=== PATIENT | female | born 1995 | race Caucasian/White ===

== ENCOUNTER 2024-02-11 15:10 | Inpatient (IN) | payer BC ==
[2024-02-11] MEDS: ELECTROLYTE-148 SOLN 1,000 ML IV SCH (16:00)
[2024-02-11] MEDS: OXYTOCIN 30 UNITS in 0.9% NS 30 UNIT/500 ML INFUS.BAG IVPB SCH (16:20)
[2024-02-11 16:32] VITALS: BMI 30.5
[2024-02-11] MEDS ORDERED: OXYTOCIN 30 UNITS in 0.9% NS 30 UNIT/500 ML INFUS.BAG IVPB ONE (16:33)
[2024-02-11] MEDS ORDERED: AMPICILLIN SODIUM 2 GM VIAL ONE (17:49)
[2024-02-11] MEDS: AMPICILLIN SODIUM 2 GM VIAL IVPB ONE (17:55)
[2024-02-11] MEDS ORDERED: FENTANYL/BUPIVACAINE/NS/PF - PCEA - 50 ML DISP.SYRIN EP ONE (20:41)
[2024-02-11] MEDS ORDERED: FENTANYL CITRATE/PF 50 MCG/ML VIAL ONE (21:04)
[2024-02-11] MEDS ORDERED: BUPIVACAINE HCL/PF 0.25% (2.5MG/ML) 10 ML VIAL ONE (21:04)
[2024-02-11] MEDS: FENTANYL/BUPIVACAINE/NS/PF - PCEA - 50 ML DISP.SYRIN EP SCH (21:15)
[2024-02-11] MEDS ORDERED: AMPICILLIN SODIUM 1 GM VIAL ONE (21:27)
[2024-02-11] MEDS: AMPICILLIN - 1 GM in SODIUM CHLORIDE 100 ML IVPB SCH (21:46)
[2024-02-11] MEDS ORDERED: NALOXONE HCL 0.4 MG/ML VIAL IVPUSH PRN (22:09)
[2024-02-12] MEDS: FAMOTIDINE 20 MG/50 ML IVPB 20 MG/50 ML MG IVPB ONE (00:45)
[2024-02-12] MEDS ORDERED: FAMOTIDINE 20 MG/50 ML IVPB 20 MG/50 ML MG IVPB ONE (00:45)
[2024-02-12] MEDS ORDERED: AMPICILLIN SODIUM 1 GM VIAL ONE ×3 (01:53→09:52)
[2024-02-12] MEDS ORDERED: FENTANYL/BUPIVACAINE/NS/PF - PCEA - 50 ML DISP.SYRIN EP ONE ×3 (02:04→10:04)
[2024-02-12 06:53] VITALS: RESP 18
[2024-02-12] MEDS ORDERED: OXYTOCIN 20 UNITS in 0.9% NS 20 UNIT/1,000 ML INFUS.BAG IV ONE (12:02)
[2024-02-12] MEDS ORDERED: LIDOCAINE HCL 1% PRESERVATIVE FREE - 30ML VIAL ONE (12:02)
[2024-02-12] MEDS: OXYTOCIN 20 UNITS in 0.9% NS 20 UNIT/1,000 ML INFUS.BAG IV SCH (12:15)
[2024-02-12] MEDS: METHYLERGONOVINE MALEATE 0.2 MG/1 ML AMP IM PRN (12:15)
[2024-02-12] MEDS ORDERED: BENZOCAINE 28 GM HEMORRHOIDAL OINTMENT TP PRN (12:30)
[2024-02-12] MEDS ORDERED: BISACODYL 10 MG SUPP.RECT RC PRN (12:30)
[2024-02-12] MEDS ORDERED: ACETAMINOPHEN 325 MG TABLET (FP) PO PRN (12:30)
[2024-02-12] MEDS ORDERED: WITCH HAZEL 50% (TUCKS) 40 PAD/JAR PAD TP PRN (12:30)
[2024-02-12] MEDS ORDERED: oxyCODONE HCL 5 MG TABLET PO PRN (12:30)
[2024-02-12] MEDS ORDERED: IBUPROFEN 600 MG TABLET (FP) PO ONE (12:53)
[2024-02-12] MEDS: IBUPROFEN 600 MG TABLET (FP) PO PRN (13:00)
[2024-02-12] MEDS: FAMOTIDINE 20 MG TABLET PO SCH (13:12)
[2024-02-13 09:01] LABS: BASO % 0.2 % (0-2.0); EOS % 0.6 % (0-4.5); HEMATOCRIT 30.2 % (32.4-45.2); HEMOGLOBIN 9.9 GM/dL (10.7-15.3); LYMPH % 12.6 % (8-40); MCH 28.1 pg (25.7-33.7); MCHC 32.8 g/dl (32.0-36.0); MEAN CELL VOLUME 85.7 fl (80-96); MEAN PLT VOLUME 9.8 fl (7.5-11.1); MONO % 7.4 % (3.8-10.2); NEUT % 79.2 % (42.8-82.8); PLATELET COUNT 133 10^3/uL (134-434); RBC 3.52 M/mm3 (3.60-5.2); RDW 14.1 % (11.6-15.6); WHITE BLOOD COUNT 10.7 K/mm3 (4.0-10.0)
[2024-02-13] MEDS ORDERED: FERROUS SO4 325 MG TABLET (FP) PO SCH (10:00)
[2024-02-13] MEDS: FERROUS SO4 325 MG TABLET (FP) PO SCH (10:48)
[2024-02-13] MEDS: SENNOSIDES/DOCUSATE COMBO (SENNA PLUS) TABLET (UD) PO PRN (21:27)
[2024-02-13] MEDS: BENZOCAINE 20% 57 GM BOTTLE TP PRN (21:28)
[2024-02-14 10:46] VITALS: BP 114/61; PULSE 68; TEMP 98.4
== END 2024-02-14 12:20 | disposition home or self-care (01) | DRG 807 ==
LOC: JLDR 15:10 → J3W 02-12 14:35
PROVIDERS: ADMIT Specialist; ATTEND Specialist
PROC: 10E0XZZ Delivery of Products of Conception, External Approach (ICD-10-PCS; principal; 2024-02-12)
PROC: 0HQ9XZZ Repair Perineum Skin, External Approach (ICD-10-PCS; 2024-02-12)
DX: O70.0 First degree perineal laceration during delivery (principal); Z37.0 Single live birth; Z3A.39 39 weeks gestation of pregnancy; O99.824 Streptococcus B carrier state complicating childbirth
CPT/HCPCS: 36415; 59409; 85025